=== PATIENT | female | born 2000 | race Native Hawaiian/Other Pacific Islander ===

== ENCOUNTER 2024-12-03 20:56 | Emergency (ER) | payer SELFPAY | END 2024-12-03 21:44 | disposition home or self-care (01) | LOC: FB.ED 20:56 | DX: S61.012A Laceration without foreign body of left thumb without damage to nail, initial encounter (principal); W26.0XXA Contact with knife, initial encounter; Y93.89 Activity, other specified | CPT/HCPCS: 12002; 99282; J2003 ==